=== PATIENT | male | born 1985 | race African-American/Black ===

== ENCOUNTER 2017-04-03 16:30 | Emergency (ER) | payer SELFPAY ==
[~2017-04-03] VITALS: Ht 177.8 cm; Wt 66.0 kg
[2017-04-03 17:54] LABS: BASOPHILS % 0.8 % (0.0-2.0); EOSINOPHILS % 1.1 % (0.0-5.0); HEMOGLOBIN. 13.7 g/dL (14.0-18.0); LYMPHOCYTES % 33.7 % (20.0-50.0); MEAN CORPUSCULAR HEMOGLOBIN 31.2 pg (28.0-32.0); MEAN CORPUSCULAR VOLUME 91.2 fL (80.0-94.0); MONOCYTES % 9.4 % (2.0-8.0); PLATELET 295 x1000/uL (130-400); RED BLOOD CELL COUNT 4.39 mill/uL (4.7-6.1); RED CELL DISTRIBUTION WIDTH 13.8 % (11.6-14.6)
[2017-04-03 18:01] LABS: CHLORIDE 101 mEq/L (98-107)
[2017-04-03 18:06] LABS: CARBON DIOXIDE 29 mEq/L (21-32); ETHANOL BLOOD < 10 mg/dL
[2017-04-03 19:41] LABS: CLARITY URINE CLEAR (CLEAR); COLOR URINE YELLOW (YELLOW); KETONES URINE NEGATIVE (NEGATIVE); LEUKOCYTE ESTERASE URINE NEGATIVE (NEGATIVE); NITRITE URINE NEGATIVE (NEGATIVE); OCCULT BLOOD URINE TRACE (NEGATIVE); PROTEIN URINE TRACE (NEGATIVE); SPECIFIC GRAVITY URINE 1.025 (1.005-1.030); UROBILINOGEN URINE 0.2 E.U./dL (0.2-1.0)
[2017-04-03 19:57] LABS: *AMPHETAMINES SCREEN URINE PRESUMTIVE POSITIVE (NEGATIVE); *BARBITURATES SCREEN URINE NEGATIVE (NEGATIVE); *BENZODIAZEPINES SCREEN URINE PRESUMTIVE POSITIVE (NEGATIVE); *COCAINE SCREEN URINE NEGATIVE (NEGATIVE); CANNABINOID URINE SCREEN PRESUMTIVE POSITIVE (NEGATIVE); METHADONE URINE SCREEN NEGATIVE (NEGATIVE); OPIATES URINE SCREEN NEGATIVE (NEGATIVE); PHENCYCLIDINE URINE SCREEN NEGATIVE (NEGATIVE)
[2017-04-03] MEDS ORDERED: SODIUM CHLORIDE 0.9% 1,000 ML IV ONE (20:30)
[2017-04-04 03:40] VITALS: BP 101/55
== END 2017-04-04 03:44 | disposition home or self-care (01) ==
LOC: ER 16:30
DX: T40.601A Poisoning by unspecified narcotics, accidental (unintentional), initial encounter (principal); Y92.89 Other specified places as the place of occurrence of the external cause
CPT/HCPCS: 36415; 70450; 80053; 80305; 81001; 85025; 96360; 99285; G0482; J7030

== ENCOUNTER 2020-11-30 11:05 | Emergency (ER) | payer MEDICAID ==
[~2020-11-30] VITALS: Ht 175.3 cm; Wt 79.0 kg
[2020-11-30 13:11] LABS: HEMATOCRIT. 30.6 % (42.0-52.0); HEMOGLOBIN. 10.6 g/dL (14.0-18.0); MEAN CORPUSCULAR HEMOGLOBIN 35.8 pg (28.0-32.0); MEAN CORPUSCULAR VOLUME 103.1 fL (80.0-94.0); MEAN PLATELET VOLUME 7.5 fl (7.4-10.4); PLATELET 343 x1000/uL (130-400); RED BLOOD CELL COUNT 2.96 mill/uL (4.7-6.1); RED CELL DISTRIBUTION WIDTH 21.5 % (11.6-14.6)
[2020-11-30 13:15] LABS: CHLORIDE 105 mEq/L (98-107)
[2020-11-30 13:49] LABS: PLATELET ESTIMATE NORMAL
[2020-11-30 14:00] VITALS: BP 121/81
== END 2020-11-30 14:22 | disposition home or self-care (01) ==
LOC: ER 11:05
DX: R07.89 Other chest pain (principal); Z98.890 Other specified postprocedural states
CPT/HCPCS: 36415; 71045; 80053; 83880; 84484; 85025; 93005; 99285; Z7610

== ENCOUNTER 2021-03-17 18:06 | Inpatient (IN) | payer MEDICAID, OTHER ==
[~2021-03-17] VITALS: Ht 175.3 cm; Wt 77.1 kg
[2021-03-17] MEDS ORDERED: VISCOUS LIDOCAINE 2% 15 ML UDC PO STA (22:28)
[2021-03-17] MEDS ORDERED: MAGNESIUM/ALUMINUM HYDROXIDE/SIMETHICONE 30ML UDC PO ONE (22:30)
[2021-03-17] MEDS ORDERED: SODIUM CHLORIDE 0.9% 1,000 ML IV ONE (22:30)
[2021-03-17] MEDS ORDERED: ONDANSETRON 4MG ODT PO ONE (22:30)
[2021-03-18 00:48] LABS: BASOPHILS % 0.9 % (0.0-2.0); EOSINOPHILS % 0.1 % (0.0-5.0); HEMATOCRIT. 38.2 % (42.0-52.0); HEMOGLOBIN. 12.7 g/dL (14.0-18.0); LYMPHOCYTES % 14.9 % (20.0-50.0); MEAN CORPUSCULAR VOLUME 102.1 fL (80.0-94.0); MONOCYTES % 9.3 % (2.0-8.0); NEUTROPHILS % 74.8 % (40.0-76.0); PLATELET 236 x1000/uL (130-400); RED BLOOD CELL COUNT 3.74 mill/uL (4.7-6.1); RED CELL DISTRIBUTION WIDTH 20.4 % (11.6-14.6)
[2021-03-18 00:55] LABS: CHLORIDE 100 mEq/L (98-107)
[2021-03-18 00:58] LABS: ETHANOL BLOOD 65 mg/dL
[2021-03-18 01:00] LABS: CLARITY URINE CLEAR (CLEAR); COLOR URINE YELLOW (YELLOW); KETONES URINE NEGATIVE (NEGATIVE); LEUKOCYTE ESTERASE URINE NEGATIVE (NEGATIVE); NITRITE URINE NEGATIVE (NEGATIVE); OCCULT BLOOD URINE NEGATIVE (NEGATIVE); PH URINE 5.5 (4.5-8.0); PROTEIN URINE NEGATIVE (NEGATIVE); UROBILINOGEN URINE 0.2 E.U./dL (0.2-1.0)
[2021-03-18] MEDS ORDERED: MORPHINE SULFATE 4 MG/ML CPJ (NOT FOR IM USE) IV ONE ×2 (01:00→03:00)
[2021-03-18 01:22] LABS: *AMPHETAMINES SCREEN URINE NEGATIVE (NEGATIVE); *BENZODIAZEPINES SCREEN URINE NEGATIVE (NEGATIVE); *COCAINE SCREEN URINE NEGATIVE (NEGATIVE); CANNABINOID URINE SCREEN NEGATIVE (NEGATIVE); METHADONE URINE SCREEN NEGATIVE (NEGATIVE); OPIATES URINE SCREEN NEGATIVE (NEGATIVE); PHENCYCLIDINE URINE SCREEN NEGATIVE (NEGATIVE)
[2021-03-18 01:23] LABS: *BARBITURATES SCREEN URINE NEGATIVE (NEGATIVE)
[2021-03-18 06:06] VITALS: BP 117/75
[2021-03-18] MEDS ORDERED: MORPHINE SULFATE 2 MG/ML CPJ (NOT FOR IM USE) IV PRN (08:15)
[2021-03-18] MEDS ORDERED: ONDANSETRON HCL 4MG/2ML INJ IV PRN (08:15)
[2021-03-18] MEDS ORDERED: LORAZEPAM 2MG/ML CPJ IV PRN (08:15)
[2021-03-18] MEDS ORDERED: NALOXONE HCL 0.4MG/ML VIAL IV PRN (08:30)
[2021-03-18] MEDS ORDERED: FAMOTIDINE 20MG/2ML VIAL IV SCH (09:00)
[2021-03-18] MEDS ORDERED: DEXT 5%/0.45% NACL KCL 20MEQ/L 1,000 ML IV SCH (09:30)
== END 2021-03-18 11:42 | disposition left against medical advice (07) | DRG 282 ==
LOC: ER 18:06 → 6EST 03-18 02:30 → ENRESERV 03-18 03:08
PROVIDERS: ADMIT Internal Medicine; ATTEND Internal Medicine
DX: K85.90 Acute pancreatitis without necrosis or infection, unspecified (principal); Z53.29 Procedure and treatment not carried out because of patient's decision for other reasons
CPT/HCPCS: 36415; 76705; 80053; 80305; 80320; 81003; 85025; 93005; 99285; J2270; J3490; J7030; Q0162; G0480

== ENCOUNTER 2021-03-19 15:27 | Inpatient (IN) | payer OTHER ==
[~2021-03-19] VITALS: Ht 175.3 cm; Wt 74.8 kg
[2021-03-20] MEDS ORDERED: KETOROLAC 30MG/ML VIAL IV STA (01:08)
[2021-03-20] MEDS ORDERED: SODIUM CHLORIDE 0.9% 1,000 ML IV ONE (01:15)
[2021-03-20 01:24] LABS: BASOPHILS % 0.4 % (0.0-2.0); EOSINOPHILS % 0.4 % (0.0-5.0); HEMATOCRIT. 36.5 % (42.0-52.0); HEMOGLOBIN. 12.3 g/dL (14.0-18.0); LYMPHOCYTES % 17.1 % (20.0-50.0); MEAN CORPUSCULAR VOLUME 103.8 fL (80.0-94.0); MEAN PLATELET VOLUME 8.1 fl (7.4-10.4); MONOCYTES % 8.6 % (2.0-8.0); NEUTROPHILS % 73.5 % (40.0-76.0); PLATELET 210 x1000/uL (130-400); RED BLOOD CELL COUNT 3.51 mill/uL (4.7-6.1); RED CELL DISTRIBUTION WIDTH 20.4 % (11.6-14.6)
[2021-03-20 01:32] LABS: CHLORIDE 102 mEq/L (98-107)
[2021-03-20 08:00] VITALS: BP 111/76
[2021-03-20] MEDS ORDERED: NALOXONE HCL 0.4MG/ML VIAL IV PRN (08:00)
[2021-03-20] MEDS ORDERED: ONDANSETRON HCL 4MG/2ML INJ IV PRN (08:00)
[2021-03-20] MEDS ORDERED: ACETAMINOPHEN 325MG TABLET PO PRN (08:00)
[2021-03-20] MEDS ORDERED: KETOROLAC 30MG/ML VIAL IV PRN (08:00)
[2021-03-20 09:00] VITALS: BP 117/76
[2021-03-20 12:00] VITALS: BP 105/61
[2021-03-20] MEDS: THIAMINE HCL 100MG TABLET PO SCH (13:03)
[2021-03-20] MEDS: PANTOPRAZOLE SODIUM 40 MG/VIAL IV SCH (13:03)
[2021-03-20] MEDS: FOLIC ACID 1MG TABLET PO SCH (13:03)
[2021-03-20 16:00] VITALS: BP 105/59
[2021-03-20 20:00] VITALS: BP 115/73
[2021-03-21] VITALS: BP 106/59
[2021-03-21] MEDS: DEXT 5% WATER + KCL 20MEQ/L 1,000 ML IV SCH ×3 (00:14→17:30)
[2021-03-21 04:00] VITALS: BP 103/61
[2021-03-21 08:00] VITALS: BP 113/63
[2021-03-21] MEDS: FOLIC ACID 1MG TABLET PO SCH (09:13)
[2021-03-21] MEDS: THIAMINE HCL 100MG TABLET PO SCH (09:13)
[2021-03-21] MEDS: PANTOPRAZOLE SODIUM 40 MG/VIAL IV SCH (09:30)
[2021-03-21 12:00] VITALS: BP 110/67
[2021-03-21 16:00] VITALS: BP 108/67
[2021-03-21 20:00] VITALS: BP 101/55
[2021-03-22] VITALS: BP 125/57
[2021-03-22 00:26] LABS: CHLORIDE 108 mEq/L (98-107)
[2021-03-22 04:00] VITALS: BP 103/59
[2021-03-22 06:53] LABS: CHLORIDE 108 mEq/L (98-107)
[2021-03-22 08:00] VITALS: BP 102/51
[2021-03-22] MEDS: PANTOPRAZOLE SODIUM 40 MG/VIAL IV SCH (09:00)
[2021-03-22] MEDS: THIAMINE HCL 100MG TABLET PO SCH (09:00)
[2021-03-22] MEDS: FOLIC ACID 1MG TABLET PO SCH (09:00)
[2021-03-22 12:00] VITALS: BP 108/60
[2021-03-22] MEDS: DEXT 5%/0.45% NACL 1000ML 1,000 ML IV SCH ×2 (13:33→22:22)
[2021-03-22 16:00] VITALS: BP 110/68
[2021-03-22 20:00] VITALS: BP_SYST 111; BP_SYST 116; BP_DIAS 65
[2021-03-22] MEDS: HYDROCODONE/ACETAMINOPHEN 5/325MG TABLET PO PRN (22:41)
[2021-03-23] VITALS: BP 116/78
[2021-03-23 04:00] VITALS: BP 102/69
[2021-03-23 07:56] LABS: BASOPHILS % 1.1 % (0.0-2.0); EOSINOPHILS % 0.9 % (0.0-5.0); HEMATOCRIT. 30.9 % (42.0-52.0); HEMOGLOBIN. 10.6 g/dL (14.0-18.0); LYMPHOCYTES % 37.6 % (20.0-50.0); MEAN CORPUSCULAR HEMOGLOBIN 36.4 pg (28.0-32.0); MEAN CORPUSCULAR VOLUME 105.8 fL (80.0-94.0); MEAN PLATELET VOLUME 8.6 fl (7.4-10.4); MONOCYTES % 11.4 % (2.0-8.0); PLATELET 282 x1000/uL (130-400); RED BLOOD CELL COUNT 2.92 mill/uL (4.7-6.1); RED CELL DISTRIBUTION WIDTH 18.9 % (11.6-14.6)
[2021-03-23 07:58] LABS: CHLORIDE 107 mEq/L (98-107)
[2021-03-23 08:00] VITALS: BP 96/57
[2021-03-23] MEDS: FOLIC ACID 1MG TABLET PO SCH (09:09)
[2021-03-23] MEDS: THIAMINE HCL 100MG TABLET PO SCH (09:09)
[2021-03-23] MEDS: PANTOPRAZOLE SODIUM 40 MG/VIAL IV SCH (09:10)
[2021-03-23] MEDS: DEXT 5%/0.45% NACL 1000ML 1,000 ML IV SCH ×2 (09:10→20:52)
[2021-03-23] MEDS: HYDROCODONE/ACETAMINOPHEN 5/325MG TABLET PO PRN (09:11)
[2021-03-23 12:33] VITALS: BP 95/65
[2021-03-23 16:00] VITALS: BP 97/60
[2021-03-23 20:00] VITALS: BP 103/49
[2021-03-24] VITALS: BP 108/78
[2021-03-24 04:00] VITALS: BP 92/58
[2021-03-24 08:00] VITALS: BP 95/57
[2021-03-24] MEDS: DEXT 5%/0.45% NACL 1000ML 1,000 ML IV SCH ×2 (08:00→15:15)
[2021-03-24] MEDS: PANTOPRAZOLE SODIUM 40 MG/VIAL IV SCH (09:02)
[2021-03-24] MEDS: THIAMINE HCL 100MG TABLET PO SCH (09:02)
[2021-03-24] MEDS: FOLIC ACID 1MG TABLET PO SCH (09:03)
[2021-03-24 12:00] VITALS: BP 91/56
[2021-03-24 16:00] VITALS: BP 100/56
[2021-03-24 20:00] VITALS: BP 102/67
[2021-03-25] VITALS: BP 103/72
[2021-03-25] MEDS: DEXT 5%/0.45% NACL 1000ML 1,000 ML IV SCH ×2 (00:10→09:20)
[2021-03-25 04:00] VITALS: BP 90/52
[2021-03-25] MEDS: FOLIC ACID 1MG TABLET PO SCH (09:18)
[2021-03-25] MEDS: THIAMINE HCL 100MG TABLET PO SCH (09:18)
[2021-03-25] MEDS: PANTOPRAZOLE SODIUM 40 MG/VIAL IV SCH (09:20)
[2021-03-25 12:00] VITALS: BP 101/59
[2021-03-25 15:17] VITALS: BP 98/54
[2021-03-25 15:26] VITALS: BP 98/54
== END 2021-03-25 16:05 | disposition home or self-care (01) | DRG 282 ==
LOC: ER 15:27 → 7EST 03-20 02:22 → EDBEDREQTM 03-20 02:50 → EDBEDREQ 03-20 02:50 → ENRESERV 03-20 07:26
PROVIDERS: ADMIT Internal Medicine; ATTEND Internal Medicine
DX: K85.90 Acute pancreatitis without necrosis or infection, unspecified (principal); E44.0 Moderate protein-calorie malnutrition; K76.0 Fatty (change of) liver, not elsewhere classified; D64.9 Anemia, unspecified; F10.10 Alcohol abuse, uncomplicated; Z71.41 Alcohol abuse counseling and surveillance of alcoholic; Z68.24 Body mass index [BMI] 24.0-24.9, adult; Z91.14 Patient's other noncompliance with medication regimen
CPT/HCPCS: 36415; 71045; 74176; 76705; 80048; 80053; 85025; 93005; 99285; C1893; C9113; J1885; J7030; J7060

== ENCOUNTER 2021-12-09 03:18 | Emergency (ER) | payer MEDICAID, OTHER ==
[~2021-12-09] VITALS: Ht 170.2 cm; Wt 69.0 kg
[2021-12-09 03:22] VITALS: BP 130/88
== END 2021-12-09 06:13 | disposition left against medical advice (07) ==
LOC: ER 03:42
DX: Z53.21 Procedure and treatment not carried out due to patient leaving prior to being seen by health care provider (principal)
CPT/HCPCS: 93005

== ENCOUNTER 2022-03-25 01:19 | Emergency (ER) | payer MEDICAID, OTHER ==
[~2022-03-25] VITALS: Ht 170.2 cm; Wt 69.2 kg
[2022-03-25 02:01] VITALS: BP 139/85
== END 2022-03-25 06:53 | disposition left against medical advice (07) ==
LOC: ER 01:39
DX: Z53.21 Procedure and treatment not carried out due to patient leaving prior to being seen by health care provider (principal)